=== PATIENT | male | born 1970 | race African-American/Black ===

== ENCOUNTER 2017-08-04 11:26 | Emergency (ER) | payer SELFPAY ==
[~2017-08-04] VITALS: Ht 180.3 cm; Wt 108.9 kg
[2017-08-04 11:37] VITALS: BP 146/88
[2017-08-04] MEDS ORDERED: KETOROLAC 60 MG/2 ML INJ. IM ONE (12:30)
[2017-08-04] MEDS ORDERED: DEXAMETHASONE SOD PHOS 20 MG/5 ML VIAL. IM ONE (12:30)
--- NOTE | 2017-08-04 13:13 | RAD ---
Right shoulder, 3 views, 08/04/2017: History: Shoulder pain No fracture or dislocation is identified. There is moderate degenerative change at the AC joint. The periarticular soft tissues are unremarkable. IMPRESSION: 1. Moderate degenerative change at the right acromioclavicular joint. 2. No acute bony abnormality is detected. Cervical spine, 3 views, 08/04/2017: C7 was not adequately visualized in the lateral projection due to the high position of the patient's shoulders. There is mild deformity of the superior endplate of C5 compatible with old trauma. There is moderate anterior spurring at C4-5 and C5-6 and mild posterior spurring at C5-6. There are mild to moderate degenerative changes involving scattered facet joints, particularly on the right at C3-4 and C4-5. No acute fracture or dislocation is identified. No prevertebral soft tissue swelling is seen. IMPRESSION: 1. Moderate scattered degenerative changes. 2. No acute bony abnormality is detected. 3. Nonemergent MR scanning may be useful for further evaluation, if clinically indicated.
[2017-08-04] MEDS ORDERED: CYCL10TA2 PO (13:35)
[2017-08-04] MEDS ORDERED: DICL50TA4 PO (13:35)
[2017-08-04] MEDS ORDERED: METH4TAB2 PO (13:35)
--- NOTE | 2017-08-04 13:35 | PHYS DOC ---
Past Medical History Past Medical History: No Pertinent History Past Surgical History: Tonsillectomy Alcohol Use: Rarely Drug Use: None Adult General Chief Complaint Chief Complaint: SHOULDER INJURY HPI HPI Patient is a 46 year old male with no significant medical history who presents with a 2 out of 10 right shoulder pain radiating to the right upper extremity with numbness and tingling to the index finger middle finger ring finger and thumb. Patient states this pain has been going on for the last 2 months. He states it's worse when he lays on that shoulder. He states whenever he lays on the shoulder. He wakes up with numb fingers. Patient denies any known injury. He is also complaining of exacerbation of chronic right sciatic pain rated at 2: 00 10 worse on weight bearing. Denies any injuries to his lumbar spine. Denies any loss of bowel bladder function. Review of Systems Review of Systems Constitutional: Denies fever or chills [] Eyes: Denies change in visual acuity, redness, or eye pain [] HENT: Denies nasal congestion or sore throat [] Respiratory: Denies cough or shortness of breath [] Cardiovascular: No additional information not addressed in HPI [] GI: Denies abdominal pain, nausea, vomiting, bloody stools or diarrhea [] : Denies dysuria or hematuria [] Musculoskeletal: Right shoulder pain and right sciatic pain. Integument: Denies rash or skin lesions [] Neurologic: Denies headache, focal weakness or sensory changes [] All other systems were reviewed and found to be within normal limits, except as documented in this note. Current Medications Current Medications Current Medications Medications (Trade) Dose Ordered Sig/[facility] Start Time Stop Time Status Last Admin Dose Admin Dexamethasone Sodium Phosphate (Decadron) 10 mg 1X ONCE 08/04/17 12:30 08/04/17 12:31 DC 08/04/17 12:26 10 MG Ketorolac Tromethamine (Toradol Im) 60 mg 1X ONCE 08/04/17 12:30 08/04/17 12:31 DC 08/04/17 12:25 60 MG Allergies Allergies Allergies Coded Allergies Type Severity Reaction Last Updated Verified No Known Drug Allergies 08/04/17 No Physical Exam Physical Exam Constitutional: Well developed, well nourished, no acute distress, non-toxic appearance. [] HENT: Normocephalic, atraumatic, bilateral external ears normal, oropharynx moist, no oral exudates, nose normal. [] Eyes: PERRLA, EOMI, conjunctiva normal, no discharge. [] Neck: Normal range of motion, no tenderness, supple, no stridor. [] Cardiovascular:Heart rate regular rhythm, no murmur [] Lungs & Thorax: Bilateral breath sounds clear to auscultation [] Abdomen: Bowel sounds normal, soft, no tenderness, no masses, no pulsatile masses. [] Skin: Warm, dry, no erythema, no rash. [] Back: Slight right SI joint tenderness, no CVA tenderness. Positive right leg straight raises. Extremities: Right shoulder with no obvious deformity. No tenderness on palpation of the right shoulder. Pain elicited on internal rotation of the shoulder otherwise full range of motion to the shoulder. Adequate abduction and adduction of the right shoulder. Adequate radial medial and ulnar sensation to the right upper extremity. +2 right radial pulse. Cap refill less than 2 seconds the right fingers., Neurologic: Alert and oriented X 3, normal motor function, normal sensory function, no focal deficits noted. [] Psychologic: Affect normal, judgement normal, mood normal. [] Current Patient Data Vital Signs Vital Signs Date Time Temp Pulse Resp B/P (MAP) Pulse Ox O2 Delivery O2 Flow Rate FiO2 08/04/17 11:37 97.7 87 20 97 Room Air 97.7 EKG EKG [] Radiology/Procedures Radiology/Procedures []PROCEDURE: CERVICAL SPINE 2-3V; SHOULDER 2+V RIGHT Right shoulder, 3 views, 08/04/2017: History: Shoulder pain No fracture or dislocation is identified. There is moderate degenerative change at the AC joint. The periarticular soft tissues are unremarkable. IMPRESSION: 1. Moderate degenerative change at the right acromioclavicular joint. 2. No acute bony abnormality is detected. Cervical spine, 3 views, 08/04/2017: C7 was not adequately visualized in the lateral projection due to the high position of the patient's shoulders. There is mild deformity of the superior endplate of C5 compatible with old trauma. There is moderate anterior spurring at C4-5 and C5-6 and mild posterior spurring at C5-6. There are mild to moderate degenerative changes involving scattered facet joints, particularly on the right at C3-4 and C4-5. No acute fracture or dislocation is identified. No prevertebral soft tissue swelling is seen. IMPRESSION: 1. Moderate scattered degenerative changes. 2. No acute bony abnormality is detected. 3. Nonemergent MR scanning may be useful for further evaluation, if clinically indicated. DICTATED and SIGNED BY: ISMA WILDE MD DATE: 08/04/17 [id number] CC: FRED MCKEON APRN; NO PCP; NON,STAFF ~ Course & Med Decision Making Course & Med Decision Making Pertinent Labs and Imaging studies reviewed. (See chart for details) Patient is in the ED with right shoulder pain radiating to the right upper extremity for the last 2 months with no known injury, he is also complaining of chronic sciatic pain. Cervical spine x-rays interpreted by radiologist were noted for DJD of the cervical spine, shoulder x-rays interpreted by radiologist were noted for DJD of the right ACM joint. Patient was discharged with diclofenac Medrol Dosepak and cyclobenzaprine with follow-up with orthopedic doctor which we provided. Dragon Disclaimer Dragon Disclaimer This electronic medical record was generated, in whole or in part, using a voice recognition dictation system. 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 Your x-rays show you have a lot of arthritis in your neck as well as right shoulder. Please follow-up with the provided orthopedic doctor. Take the prescribed medicines as ordered. Scripts Cyclobenzaprine Hcl (CYCLOBENZAPRINE HCL) 10 Mg Tablet 1 TAB PO TID, #90 TAB Prov: FRED MCKEON APRN 08/04/17 Methylprednisolone (MEDROL) 4 Mg Tab.ds.pk 1 PKG PO UD, #1 PKG Prov: FRED MCKEON APRN 08/04/17 Diclofenac Sodium (DICLOFENAC SODIUM) 50 Mg Tablet.dr 1 TAB PO BID, #30 TAB 0 Refills Prov: FRED MCKEON APRN 08/04/17 Problem Qualifiers FRED MCKEON APRN Aug 04, 2017 13:35
== END 2017-08-04 13:59 | disposition home or self-care (01) ==
LOC: ER 11:26
DX: M54.31 Sciatica, right side (principal); M19.011 Primary osteoarthritis, right shoulder; M47.22 Other spondylosis with radiculopathy, cervical region
CPT/HCPCS: 72040; 73030; 96372; 99284; J1100; J1885

== ENCOUNTER 2020-07-26 11:08 | Emergency (ER) | payer SELFPAY ==
[~2020-07-26] VITALS: Ht 182.9 cm; Wt 120.0 kg
[~2020-07-26 11:08] MED LIST: CYCL10TA2 PO; DICL50TA4 PO; METH4TAB2 PO
[2020-07-26 11:10] VITALS: BP 150/87
[2020-07-26] MEDS ORDERED: IBUP-1007 PO (11:41)
[2020-07-26] MEDS ORDERED: HYDR-3164 PO (11:41)
[2020-07-26] MEDS ORDERED: METH4TAB2 PO (11:41)
--- NOTE | 2020-07-26 11:41 | PHYS DOC ---
Past Medical History Past Medical History: No Pertinent History Past Surgical History: Tonsillectomy Smoking Status: Never Smoker Alcohol Use: Rarely Drug Use: None General Adult EDM: Chief Complaint: LOWER EXT PAIN HPI: HPI: Patient is a 49 year old male who presents with patient states about a week ago he started having right-sided sciatica pain and he has been using lidocaine patches, ibuprofen and heating pad. States is just not getting better. He states it starts in the right lower back and goes down behind the thigh. Patient states it is worse when he is up and moving. He denies any injury or doing any thing out of the ordinary. He denies numbness or tingling, loss of bowel bladder, saddle paresthesia, abdominal pain, urinary symptoms, nausea, vomiting, diarrhea. Rates his pain a 10 out of 10 when he is up and moving. States that sharp and shooting. Review of Systems: Review of Systems: Constitutional: Denies fever or chills. [] Eyes: Denies change in visual acuity. [] HENT: Denies nasal congestion or sore throat. [] Respiratory: Denies cough or shortness of breath. [] Cardiovascular: Denies chest pain or edema. [] GI: Denies abdominal pain, nausea, vomiting, bloody stools or diarrhea. [] : Denies dysuria. [] Musculoskeletal: Denies back pain or joint pain. +Right lower back pain sharp shooting down the back of the thigh. [] Integument: Denies rash. [] Neurologic: Denies headache, focal weakness or sensory changes. [] Endocrine: Denies polyuria or polydipsia. [] Lymphatic: Denies swollen glands. [] Psychiatric: Denies depression or anxiety. [] Heart Score: Risk Factors: Risk Factors: DM, Current or recent (<one month) smoker, HTN, HLP, family history of CAD, obesity. Risk Scores: Score 0 - 3: 2.5% MACE over next 6 weeks - Discharge Home Score 4 - 6: 20.3% MACE over next 6 weeks - Admit for Clinical Observation Score 7 - 10: 72.7% MACE over next 6 weeks - Early Invasive Strategies Allergies: Allergies: Allergies Coded Allergies Type Severity Reaction Last Updated Verified No Known Drug Allergies 08/04/17 No Physical Exam: PE: Constitutional: Well developed, well nourished, no acute distress, non-toxic appearance. [] HENT: Normocephalic, atraumatic, bilateral external ears normal, oropharynx moist, no oral exudates, nose normal. [] Eyes: PERRLA, EOMI, conjunctiva normal, no discharge. [] Neck: Normal range of motion, no tenderness, supple, no stridor. [] Cardiovascular:Heart rate regular rhythm, no murmur [] Lungs & Thorax: Bilateral breath sounds clear to auscultation [] Abdomen: Bowel sounds normal, soft, no tenderness, no masses, no pulsatile mas ses. [] Skin: Warm, dry, no erythema, no rash. [] Back: No tenderness, no CVA tenderness. [] Extremities: No tenderness, no cyanosis, no clubbing, ROM intact, no edema. [] Neurologic: Alert and oriented X 3, normal motor function, normal sensory function, no focal deficits noted. [] Psychologic: Affect normal, judgement normal, mood normal. Normal physical exam [] EKG: EKG: [] Radiology/Procedures: Radiology/Procedures: [] Course & Med Decision Making: Course & Med Decision Making Pertinent Labs and Imaging studies reviewed. (See chart for details) See HPI. Ambulatory with steady gait but limping on the right side. No unilateral leg swelling. Skin pink warm and dry. Popliteal pulses present. Cap refill less than 2 seconds. Full strength and no focal weakness. Full sensations. No tenderness to the back, or in the areas of pain. Patient will be given a Medrol Dosepak, pain medication. He will follow up with his primary care provider. [] Connie Disclaimer: Connie Disclaimer: This electronic medical record was generated, in whole or in part, using a voice recognition dictation system. Departure Departure Impression: Primary Impression: Sciatica Qualified Codes: M54.31 - Sciatica, right side Disposition: 01 DC HOME SELF CARE/HOMELESS Condition: STABLE Referrals: NO PCP (PCP) Patient Instructions: Sciatica with Rehab-[facility] Additional Instructions: Take medication as prescribed and with food. Do not drive or work on the pain medication as it will make you sleepy. Follow-up with your primary care provider. Continue using a heating pad or lidocaine patches. Scripts Hydrocodone/Apap 5-325 (NORCO 5-325 TABLET) 1 Each Tablet 1 TAB PO PRN Q6HRS PRN for PAIN, #15 TAB 0 Refills Prov: BONG DESIR APRN 07/26/20 Ibuprofen (IBUPROFEN) 600 Mg Tablet 600 MG PO PRN Q6HRS PRN for INFLAMMATION, #20 TAB Prov: BONG DESIR APRN 07/26/20 Methylprednisolone (MEDROL) 4 Mg Tab.ds.pk 1 PKG PO UD, #1 PKG Prov: BONG DESIR APRN 07/26/20 BONG DESIR APRN Jul 26, 2020 11:41
== END 2020-07-26 11:55 | disposition home or self-care (01) ==
LOC: ER 11:08
DX: M54.41 Lumbago with sciatica, right side (principal)
CPT/HCPCS: 99283